=== PATIENT | male | born 1980 | race Caucasian/White ===

== ENCOUNTER → 2017-12-03 09:52 | Outpatient (CLI) | payer OTHER, SELFPAY ==
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
== END ==
PROVIDERS: PCP Family Medicine; Visit Provider Physician Assistant
DX: M25.512 Pain in left shoulder (principal)
CPT/HCPCS: 73030

== ENCOUNTER 2022-07-04 19:03 | Inpatient (IN) | payer OTHER, SELFPAY ==
[2022-07-04] VITALS (17 sets, daily range): BP systolic 105–146; BP diastolic 64–86; PULSE 94–105; RESP 9–40; TEMP 36.6–37.4; O2SAT 91–100; BMI 28.7
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
--- NOTE | 2022-07-04 19:07 | PC.NURSE ---
ED MD at bedside with US conducting FAST exam.
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
[2022-07-04 19:55] LABS: Add Manual Diff / Slide Review NO; Basophils Absolute Auto 100 /uL (0-100); Basophils Percent Auto 0.7 % (0-2); Eosinophils Absolute Auto 200 /uL (0-450); Eosinophils Percent Auto 2.1 % (2-4); Hematocrit 44.6 % (41-53); Lymphocytes Absolute Auto 3800 /uL (1100-4500); Lymphocytes Percent Auto 38.2 % (25-40); Mean Corpuscular HGB Conc 35.9 % (30-36); Mean Corpuscular Volume 83.7 fL (80-100); Monocytes Absolute Auto 600 /uL (0-900); Neutrophils Absolute Auto 5300 /uL (1500-7000); Platelet Count 261 X10^3/uL (150-400); Red Blood Cell Count 5.33 X10^6/uL (4.5-5.9); Red Cell Distribution Width 12.9 % (11.6-14.8); White Blood Cell Count 9.9 X10^3/uL (4.5-11.0)
[2022-07-04 20:02] LABS: Alanine Aminotransferase 48 IU/L (<50); Albumin 4.2 g/dL (3.5-5.0); Albumin Globulin Ratio 1.4 (1.0-2.8); Alkaline Phosphatase 47 U/L (38-126); Aspartate Aminotransferase 33 IU/L (17-59); BUN Creatinine Ratio 17.9 (6-22); Bilirubin Total 0.4 mg/dL (0.2-1.3); Blood Urea Nitrogen 17 mg/dL (9-20); Calcium 8.7 mg/dL (8.4-10.2); Carbon Dioxide 27 mmol/L (22-32); Chloride 104 mmol/L (98-107); Estimated Glomerular Filt Rate > 60 mL/min (>60); Globulin 3.1 g/dL (1.7-4.1); Glucose 130 mg/dL (70-100); HEMOLYSIS 19 (0-50); Potassium 3.5 mmol/L (3.4-5.1); Sodium 141 mmol/L (137-145); Total Protein 7.3 g/dL (6.3-8.2)
[2022-07-04] MEDS: HYDROMORPHONE 1 MG INJ IV (20:03)
[2022-07-04] MEDS: SODIUM CHLORIDE 0.9% 1,000 ML 125 ML IV (20:03)
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
--- NOTE | 2022-07-04 20:36 | DI.CT.S_ITS ---
PROCEDURE: CT LE LT W CON INDICATIONS: tibia fracture TECHNIQUE: Noncontrast 3 mm axial sections acquired of the left tibia/fibula from just above the knee joint inferiorly, with coronal and sagittal reformats. COMPARISON: [facility], CR, XR TIBIA FIBULA LT 2V, 07/04/2022, 19:06. FINDINGS: Image quality: Excellent. Bones: Moderately comminuted proximal fibular diaphyseal fracture, with mild angulation abnormality as was seen during plain film imaging. Additionally, more inferiorly involving the distal half of the tibia and extending inferiorly to the tibial plafond there is a 2nd area of significant trauma with comminuted fracture planes and moderate malalignment at the junction of the middle and distal thirds of the tibia. The vertically oriented fracture planes extend to just above the tibial plafond posteriorly. Intra-articular extension into the ankle mortise joint is not seen. Soft tissues: No hematoma identified, expected mild soft tissue swelling. IMPRESSION: Comminuted fractures of the proximal fibula and distal tibia, without extension into the articular surfaces as discussed. Dictated by: Geoff Dexter M.D. on 07/04/2022 at 21:39 Approved by: Geoff Dexter M.D. on 07/04/2022 at 21:42
[2022-07-04 21:13] LABS: COVID19 -Nasal RAPID Negative (Negative)
[2022-07-04] MEDS: OXYCODONE/ACETAMINOPHEN 5/325 TABLET 1 TAB PO (21:40)
--- NOTE | 2022-07-04 22:08 | DI.RAD.S_ITS ---
PROCEDURE: XR KNEE RT 1TO2V INDICATIONS: Contusion laceration and swelling right knee TECHNIQUE: 2 views of the knee were acquired. COMPARISON: [facility], BRITTANY, XR KNEE LT 1TO2V, 07/04/2022, 19:06. [facility], BRITTANY, KNEE 3V LEFT, 03/15/2015, 10:42. FINDINGS: Bones: No fractures or dislocations. No suspicious bony lesions. Soft tissues: No joint effusion. No suspicious soft tissue calcifications. IMPRESSION: No trauma to the right knee is found. Dictated by: Geoff Dexter M.D. on 07/04/2022 at 23:01 Approved by: Geoff Dexter M.D. on 07/04/2022 at 23:01
[2022-07-04] MEDS: LACTATED RINGERS 1,000 ML 100 ML IV (22:26)
[2022-07-04] MEDS: HYDROMORPHONE 2 MG INJ 1 MG IV (22:45)
[2022-07-04] MEDS: ACETAMINOPHEN 325 MG TABLET 650 MG PO (22:46)
[2022-07-05] VITALS (15 sets, daily range): BP systolic 101–150; BP diastolic 57–87; PULSE 77–105; RESP 11–21; TEMP 35.9–37.5; O2SAT 92–100; BMI 28.7
--- NOTE | 2022-07-05 | DI.RAD.S_ITS ---
PROCEDURE: XR TIBIA FIBULA LT 2V INDICATIONS: OR TECHNIQUE: 2 views of the tibia and fibula were acquired. COMPARISON: [facility], CR, XR TIBIA FIBULA LT 2V, 07/04/2022, 19:06. FINDINGS: Bones: ORIF of the tibia has been performed. Proximal fibular fracture is present before. Soft tissues: No suspicious soft tissue calcifications or masses. IMPRESSION: Postsurgical sequelae. Dictated by: Magen Poe M.D. on 07/05/2022 at 12:26 Approved by: Magen Poe M.D. on 07/05/2022 at 12:26
[2022-07-05] MEDS: OXYCODONE IR 10 MG TABLET PO ×4 (01:08→20:45)
[2022-07-05] MEDS: ACETAMINOPHEN 325 MG TABLET 650 MG PO (04:07)
[2022-07-05] MEDS: LACTATED RINGERS 1,000 ML 100 ML IV (07:03)
--- NOTE | 2022-07-05 07:32 | PM.PREOP ---
Pre-operative Note Interval Note History & Physical reviewed/Exam performed by Physician: Yes Changes to H&P: No
[2022-07-05] MEDS: LACTATED RINGERS 1,000 ML 42 ML IV ×3 (07:58→14:35)
[2022-07-05] MEDS: HYDROMORPHONE 2 MG INJ IV ×2 (08:17→12:35)
--- NOTE | 2022-07-05 08:20 | SUR.HOLD ---
Patient delayed with surgical start time due to staffing issue; pain 8/10; per anesthesia, okay to give Dilaudid for pain while waiting.
[2022-07-05] MEDS: CEFAZOLIN 2 GM/100 ML PREMIX 100 ML IV ×2 (09:00→16:34)
--- NOTE | 2022-07-05 09:46 | SUR.OPER ---
Supine on padded OR bed, head on pillow, arms secured on padded arm boards at <90 degrees abduction, legs uncrossed, safety belt at thigh, tape over blanket over lower leg
[2022-07-05] MEDS: BUPIVACAINE 0.25% (PF) 30 ML, EPINEPHrine 0.15 MG INJ (09:52)
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
--- NOTE | 2022-07-05 12:00 | DI.RAD.S_ITS ---
PROCEDURE: XR TIBIA FIBULA LT 2V INDICATIONS: post surgical TECHNIQUE: 2 views of the tibia and fibula were acquired. COMPARISON: [facility], CR, XR TIBIA FIBULA LT 2V, 07/05/2022, 11:50. FINDINGS: Bones: No fractures or dislocations. No suspicious bony lesions. ORIF of the tibia. Proximal fibular fracture. Soft tissues: No suspicious soft tissue calcifications or masses. IMPRESSION: Postsurgical sequelae. Dictated by: Magne Poe M.D. on 07/05/2022 at 12:59 Approved by: Magen Poe M.D. on 07/05/2022 at 13:00
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
[2022-07-05] MEDS: OXYCODONE/ACETAMINOPHEN 5/325 TABLET 1 TAB PO (12:45)
[2022-07-05] MEDS: hydrOXYzine pamoate 25 MG CAPSULE 50 MG PO (12:45)
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
[2022-07-05] MEDS: ONDANSETRON 4 MG/2 ML INJ IV (12:46)
[2022-07-05] MEDS: HYDROMORPHONE 1 MG INJ 0.2 MG IV ×3 (14:34→19:57)
[2022-07-05] MEDS: DOCUSATE 100 MG CAPSULE PO (20:45)
[2022-07-06] MEDS: CEFAZOLIN 2 GM/100 ML PREMIX 100 ML IV (00:56)
[2022-07-06] MEDS: OXYCODONE IR 10 MG TABLET PO ×5 (00:58→14:24)
[2022-07-06 04:38] VITALS: BP 123/66; PULSE 67; RESP 21; TEMP 37.4; O2SAT 97
[2022-07-06 06:32] LABS: Hematocrit 33.5 % (41-53); Hemoglobin 12.1 g/dL (13.5-17.5); Mean Corpuscular HGB Conc 36.1 % (30-36); Mean Corpuscular Hemoglobin 30.3 PG (26-34); Mean Corpuscular Volume 83.9 fL (80-100); Platelet Count 243 X10^3/uL (150-400); Red Blood Cell Count 3.99 X10^6/uL (4.5-5.9); Red Cell Distribution Width 12.8 % (11.6-14.8); White Blood Cell Count 11.5 X10^3/uL (4.5-11.0)
[2022-07-06] MEDS: DOCUSATE 100 MG CAPSULE PO (08:35)
[2022-07-06] MEDS: polyethylene glycoL 3350 17 GM POWD.PACK PO (08:35)
[2022-07-06] MEDS: ENOXAPARIN 40 MG/0.4 ML SYRINGE SUBCUT (08:36)
[2022-07-06 08:50] VITALS: BP 119/75; PULSE 88; RESP 20; TEMP 37.4; O2SAT 94
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
[2022-07-06] MEDS: HYDROMORPHONE 1 MG INJ 0.2 MG IV (10:17)
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
--- NOTE | 2022-07-06 16:57 | PC.NURSE ---
Discharge Nurse Patient A&O, VSS, RA, pain well controlled with PO regimen. Patient agreeable to discharge plan. Discharge packet reviewed with patient, all questions/concerns addressed. PIV/TELE discontinued. Patient reminded to fern picker prescriptions at preferred pharmacy. Patient able to dress self and pack all belongings. Patient taken down via wheelchair to POV accompanied by .
== END 2022-07-06 15:45 | disposition home or self-care (01) | DRG 494 ==
LOC: ED 19:44 → AC 20:10
PROVIDERS: Admitting Provider Orthopaedic Surgery Foot and Ankle Surgery; Emergency Provider Emergency Medicine; PCP Family Medicine; Referring Provider Emergency Medicine; Visit Provider Orthopaedic Surgery Foot and Ankle Surgery
PROC: 0QSK06Z Reposition Left Fibula with Intramedullary Internal Fixation Device, Open Approach (ICD-10-PCS; principal; 2022-07-05 08:00)
DX: S82.242A Displaced spiral fracture of shaft of left tibia, initial encounter for closed fracture (principal); S82.442A Displaced spiral fracture of shaft of left fibula, initial encounter for closed fracture; F17.200 Nicotine dependence, unspecified, uncomplicated; V28.09XA Other motorcycle driver injured in noncollision transport accident in nontraffic accident, initial encounter; Z20.822 Contact with and (suspected) exposure to COVID-19
CPT/HCPCS: 36415; 71045; 72170; 73560; 73590; 73600; 73700; 76000; 80053; 85025; 85027; 87635; 96374; 97116; 97161; 97530; 97535; 99284; 99285; C1776; C9803; J0171; J0690; J1100; J1170; J1650; J2250; J2405; J2704; J3010

== ENCOUNTER 2022-07-12 05:44 | Emergency (ER) | payer OTHER, SELFPAY ==
[2022-07-04 21:22] VITALS: BMI 28.7
[2022-07-12 05:49] VITALS: BP 109/73; PULSE 106; RESP 18; TEMP 36.3; O2SAT 100; BMI 27.9
--- NOTE | 2022-07-12 05:57 | DI.RAD.S_ITS ---
PROCEDURE: XR TIBIA FIBULA LT 2V INDICATIONS: post surgery pain TECHNIQUE: 2 views of the tibia and fibula were acquired. COMPARISON: [facility], CR, XR TIBIA FIBULA LT 2V, 07/05/2022, 12:30. FINDINGS: Bones: No change in proximal fibular fracture. Stable fixation of the tibia. Hardware is intact. Soft tissues: No suspicious soft tissue calcifications or masses. IMPRESSION: Postsurgical sequelae. Dictated by: Magen Poe M.D. on 07/12/2022 at 8:03 Approved by: Magen Poe M.D. on 07/12/2022 at 8:03
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
[2022-07-12 06:15] VITALS: BP 112/70; PULSE 98; RESP 18; O2SAT 98
[2022-07-12 07:44] VITALS: BP 128/80; PULSE 104; RESP 16; O2SAT 99
== END 2022-07-12 07:44 | disposition home or self-care (01) ==
PROVIDERS: Emergency Provider Emergency Medicine; PCP Family Medicine
DX: S82.102A Unspecified fracture of upper end of left tibia, initial encounter for closed fracture (principal); X58.XXXS Exposure to other specified factors, sequela
CPT/HCPCS: 73590; 99283